=== PATIENT | female | born 1985 | race Caucasian/White ===

== ENCOUNTER 2024-06-07 09:54 | Day surgery (SDC) | payer BC, SELFPAY ==
[2024-06-07 10:39] VITALS: BMI 20.3
[2024-06-07] MEDS: LACTATED RINGERS 1000ML 1,000 ML 50 ML IV (10:47)
[2024-06-07 10:49] VITALS: BP 112/78; PULSE 74; RESP 18; TEMP 36.3; O2SAT 100
[2024-06-07 10:53] LABS: Urine Pregnancy, HCG Qual. Negative (Negative)
--- NOTE | 2024-06-07 11:06 | EXP.ANES.CKL ---
[facility] Disclaimer: The information contained in this section may have been updated after the patient was seen, as this information can be updated by other users. Medical History (Updated 06/07/24 @ 10:47 by Cris Guerra RN) No significant past medical history Surgical History History of tonsillectomy Family History (Updated 06/07/24 @ 10:47 by Cris Guerra RN) Other No significant family history Social History (Updated 06/07/24 @ 10:48 by Cris Guerra RN) Smoking Status: Never smoker alcohol intake: current alcohol intake frequency: a few times a week substance use type: denies use current occupational status: employed Travel in the last 8 weeks: Outside the [place] Have you lived/traveled outside US in past 30 days?: No Contact w/someone who lives/traveled outside US past 30 days?: No Exposure to someone with infectious disease in past 14 days?: No Do you have a fever (greater than 100.4 F or 38 C)?: No Have you tested positive for COVID-19: No Exposed to someone with COVID-19 in past 14 days?: No Do you have a sore throat?: No Do you have a cough?: No Do you have any weakness?: No Do you have any diarrhea?: No Are you experiencing any unusual bleeding?: No Do you have any muscle aches/pain?: No Do you have any abdominal pain?: No Are you experiencing loss of taste or smell?: No [facility] Anesthesia Checklist Patient Identification Patient Identification: Verbal (Name & ) Structural Data Admitted From: Home Planned Operative Procedure/s: colonoscopy Consent for Planned Operative Procedure(s) Verified: Yes NPO Status Verified Time NPO: 00:00 Additional verifications Anesthesia Reactions: No Hx Blood Transfusions: No Blood Transfusion Reaction: No Airway Assessment Mallampati Score:: Class II C-Spine Mobility Assessed: Yes TMJ Mobility Assessed: Yes Dentition: Good Dentition Neurological Assessment Level of Consciousness: Awake, Alert and Appropriate Anesthesia Plan Anesthesia Risk discussed: Yes Anesthesia Plan: Verified ASA Class: II Anesthesia Type: MAC
--- NOTE | 2024-06-07 11:08 | EXP.HP ---
History of Present Illness *Admission Date: 06/07/24 *History of present illness: Mrs. Lomax is a 38-year-old female who is here for diagnostic colonoscopy secondary to rectal bleeding which has gotten worse. The examination is deemed medically necessary for diagnostic colonoscopy with potential banding of internal hemorrhoids. The patient has been seen, interviewed and examined prior to the procedure by both myself and the anesthesia provider. [facility] Disclaimer: The information contained in this section may have been updated after the patient was seen, as this information can be updated by other users. Medical History (Updated 06/07/24 @ 10:47 by Cris Guerra RN) No significant past medical history Surgical History History of tonsillectomy Family History (Updated 06/07/24 @ 10:47 by Cris Guerra RN) Other No significant family history Social History (Updated 06/07/24 @ 10:48 by Cris Guerra RN) Smoking Status: Never smoker alcohol intake: current alcohol intake frequency: a few times a week substance use type: denies use current occupational status: employed Travel in the last 8 weeks: Outside the [facility] Have you lived/traveled outside US in past 30 days?: No Contact w/someone who lives/traveled outside [place] past 30 days?: No Exposure to someone with infectious disease in past 14 days?: No Do you have a fever (greater than 100.4 F or 38 C)?: No Have you tested positive for COVID-19: No Exposed to someone with COVID-19 in past 14 days?: No Do you have a sore throat?: No Do you have a cough?: No Do you have any weakness?: No Do you have any diarrhea?: No Are you experiencing any unusual bleeding?: No Do you have any muscle aches/pain?: No Do you have any abdominal pain?: No Are you experiencing loss of taste or smell?: No Review of Systems Review of Systems Review of systems (narrative): Negative *Cardiovascular Comments: Negative *Gastrointestinal Comments: Negative *Genitourinary Comments: Negative *Musculoskeletal Comments: Negative *Neurologic Comments: Negative Meds Home Medications and Allergies New Prescriptions to Start Prescriptions: Allergies Allergy/AdvReac Type Severity Reaction Status Date / Time No Known Allergies Allergy Verified 06/07/24 10:48 Exam Data for Last 24 hours Vital signs and Labs for Last 24 Hours: Temp Pulse Resp BP Pulse Ox O2 Del Method 97.4 F L 74 18 112/78 100 Room Air 06/07/24 10:49 06/07/24 10:49 06/07/24 10:49 06/07/24 10:49 06/07/24 10:49 06/07/24 10:49 Laboratory Results - last 24 hr 06/07/24 10:38: Urine HCG, Qual Negative I & O for Last 24 hours: Intake & Output 06/04/24 06/05/24 06/06/24 06/07/24 23:59 23:59 23:59 23:59 Weight 115 lb *Routine HEENT Exam Head: Present normocephalic Eye: Present EOMI and PERRL ENT: Present mucous membranes moist *Routine Neck Exam Neck: Present supple *Routine Respiratory Exam Respiratory: Present CTA bilaterally *Routine Cardiovascular Exam Cardiovascular: Present RRR *Routine Abdominal Exam Abdominal: Present soft and normoactive bowel sounds; Absent tenderness *Routine Rectal Exam Rectal:: deferred *Routine Genitalia Exam Genitalia:: deferred *Routine Extremities Exam Extremities: Absent cyanosis, clubbing or edema *Routine Skin Exam Skin: Present warm; Absent rash *Routine Neurological Exam Neurological: Present alert and oriented X3 Assessment and Plan *Assessment and plan (1) Rectal bleeding: Status: Acute Category: Medical Code(s): K62.5 - Hemorrhage of anus and rectum (2) Rectal pain: Status: Acute Category: Medical Code(s): K62.89 - Other specified diseases of anus and rectum (3) Pelvic floor dysfunction: Status: Acute Category: Medical Code(s): M62.89 - Other specified disorders of muscle (4) Hemorrhoids: Status: Acute Category: Medical Code(s): K64.9 - Unspecified hemorrhoids Plan A/P: 1. Bright red rectal bleeding with history of bleeding and prolapsing hemorrhoids and pelvic floor dysfunction is the preprocedural diagnosis. The patient will be anesthetized/sedated using MAC sedation. The patient has been seen and examined. Cardiac and lung assessment prior to the examination is stable. Proceed with planned diagnostic colonoscopy
[2024-06-07 11:17] VITALS: O2SAT 100
--- NOTE | 2024-06-07 11:22 | HMH.PROCNOTE ---
[facility] Procedure Note Date: 06/07/24 Time: 11:41 Procedure Note:: Colonoscopy Procedure Report: Colonoscopy with monopolar ablation/coagulation of internal hemorrhoids Endoscopist: George Zavala II, MD Referring physician: Po Mann MD, [address] [place] [address] [facility] [id number] [place] [address] Date of Procedure: June 07, 2024 Equipment: Olympus 190 variable stiffness pediatric colonoscope Sedation: MAC sedation Indication: Mrs. Lomax is a 38-year-old female with bright red rectal bleeding that dates back to 2011 after her first child was born. She does have a history of hemorrhoids and hemorrhoidal prolapse. This had gotten worse more recently and has been more persistent. She does state that every 3 months, she gets some hemorrhoid pain and rectal bleeding that last for 3 to 4 days. She reports no obstipation or incomplete bowel evacuation. She reports no abdominal pain, weight loss, change in her bowel habits or family history of colon cancer. Colonoscopy is performed for diagnostic purposes. Procedure: Prior to the procedure, a history and physical exam was performed, and patient's medications and allergies were reviewed. The risks, benefits and alternatives of the sedation and procedure were discussed with the patient. All questions were answered and informed consent was obtained. The patient was brought to the procedure room. Patient identification and proposed procedure were verified by the physician and the nurse. The patient was placed in a left lateral decubitus position and the scope was passed under direct vision. Throughout the procedure, the patient's blood pressure, pulse, and oxygen saturations were monitored continuously. The colonoscopy was accomplished without difficulty. The patient tolerated the procedure well. Findings: On digital rectal examination there was normal rectal tone. There were no external hemorrhoids. There was a healed anterior midline anal fissure. There were small anterior tags. The colonoscope was introduced through the anal canal to the rectum and advanced to the cecum. The ileocecal valve and appendiceal orifice were identified. The scope was advanced a short distance into the ileum which appeared grossly normal. The scope was then withdrawn into the colon. The cecum, ascending, transverse, descending, sigmoid and rectum were grossly normal. There were no mucosal abnormalities identified. Upon retroflexion within the rectum there were grade 2 internal hemorrhoids. The 3 columns of hemorrhoids were ablated/coagulated using monopolar ablation to destruction. The preparation was excellent throughout with [place] Preparation Score of 9. The cecal time was 9 minutes. Impression: 1. Normal colonoscopy with intubation of the terminal ileum 2. Grade 2 internal hemorrhoids status post monopolar ablation/coagulation Plan: I would encourage psyllium fiber supplementation on a long-term daily maintenance basis. For recurrence of hemorrhoids, I would consider Vasculera. Vasculera is a treatment in the management of hemorrhoids and is considered a dietary supplemental treatment. The active ingredient helps to improve venous tone and reduction of capillary resistance which is disordered and hemorrhoidal disease. It improves lymphatic drainage and inflammation in the micro-circulation. Multiple studies have shown reduction of bleeding, discomfort, swelling and inflammation of hemorrhoids and improved resolution of symptoms in a shorter time. It is a very safe medical alternative to hemorrhoid management. The patient will not require surveillance colonoscopy again for 10 years by ACS guidelines.
[2024-06-07 11:43] VITALS: BP 109/58; PULSE 74; RESP 17; TEMP 36.3; O2SAT 99
[2024-06-07 11:53] VITALS: BP 107/59; PULSE 65; RESP 16; O2SAT 100
[2024-06-07 12:03] VITALS: BP 109/67; PULSE 67; RESP 16; O2SAT 100
[2024-06-07 12:13] VITALS: BP 109/77; PULSE 62; RESP 18; O2SAT 100
== END 2024-06-07 12:16 | disposition home or self-care (01) ==
PROVIDERS: PCP Internal Medicine; Visit Provider Internal Medicine Gastroenterology
PROC: 0DJD8ZZ Inspection of Lower Intestinal Tract, Via Natural or Artificial Opening Endoscopic (ICD-10-PCS; CPT 45378; principal; 2024-06-07 11:30)
DX: K64.1 Second degree hemorrhoids (principal); K62.5 Hemorrhage of anus and rectum; K62.89 Other specified diseases of anus and rectum; M62.89 Other specified disorders of muscle; K64.9 Unspecified hemorrhoids
CPT/HCPCS: 45388; 46930; 81025; J7120